=== PATIENT | male | born 1960 | race Caucasian/White ===

== ENCOUNTER 2019-12-24 11:56 | Outpatient (NON) | payer MEDICARE, SELFPAY ==
[2019-12-24 23:56] LABS: SARS-CoV-2 RNA PCR Negative
== END 2019-12-24 11:57 ==
PROVIDERS: Visit Provider Internal Medicine
DX: R05 Cough (principal); Z20.828 Contact with and (suspected) exposure to other viral communicable diseases
CPT/HCPCS: 87635; C9803; U0003

== ENCOUNTER 2020-01-23 11:19 | Outpatient (CLI) | payer MEDICARE, SELFPAY ==
--- NOTE | ~2020-01-23 | XR_ITS ---
XR chest 2V DATE: 01/23/2020 11:36 INDICATION: Cough, shortness of breath, fatigue. No fever. TECHNIQUE: PA and lateral views COMPARISON: 03/23/2016 portable AP chest FINDINGS: Normal heart size. No hilar or mediastinal enlargement. No pulmonary infiltrate or consol idation, pulmonary vascular congestion or pleural effusion or pneumothorax. Right glenohumeral joint replacement. Screws at left shoulder joint. Degenerative spurring of the t horacic spine. IMPRESSION: No active cardiopulmonary disease Reviewed, dictated and finalized at location B. 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
== END 2020-01-23 11:20 | disposition home or self-care (01) ==
PROVIDERS: PCP Internal Medicine; Visit Provider Internal Medicine
DX: R05 Cough (principal); Z96.611 Presence of right artificial shoulder joint; R06.02 Shortness of breath; R53.83 Other fatigue
CPT/HCPCS: 71046

== ENCOUNTER 2020-05-06 09:00 | Outpatient (CLI) | payer MEDICARE, SELFPAY ==
[2020-05-06 09:54] LABS: Basophils Absolute Auto 0.1 K/mm3 (0.0-0.1); Basophils Percent Auto 0.9 % (0.2-1.2); Eosinophils Absolute Auto 0.1 K/mm3 (0-0.3); Eosinophils Percent Auto 1.7 % (0-4.4); Hematocrit 41.8 % (42.0-52.0); Hemoglobin 14.3 g/dL (14.0-18.0); Immature Granulocyte Absolute 0.02 K/mm3 (0.00-0.031); Immature Granulocyte Percent A 0.2 % (0-0.5); Lymphocytes Percent Auto 20.9 % (18.3-44.2); Mean Corpuscular HGB Conc 34.2 g/dl (32-36); Mean Corpuscular Hemoglobin 31.9 pg (26-34); Mean Corpuscular Volume 93.3 fl (80-100); Mean Platelet Volume 9.8 fl (7.4-10.4); Monocytes Absolute Auto 0.5 K/mm3 (0.1-0.6); Monocytes Percent Auto 6.6 % (2.6-8.5); Neutrophils Absolute Auto 5.7 K/mm3 (1.3-6.7); Neutrophils Percent Auto 69.7 % (45.5-73.1); Platelet Count Result 197 k/mm3 (150-375); Red Blood Count 4.48 M/mm3 (4.6-6.20); Red Cell Distribution Width 13.1 % (11.5-14.5); White Blood Count 8.2 K/mm3 (4.5-10.0)
[2020-05-06 10:12] LABS: Alanine Aminotransferase 98 U/L (4-50); Albumin Level 4.4 g/dL (3.5-5.1); Alkaline Phosphatase 89 U/L (38-126); Anion Gap 8 mmol/L (8-16); Aspartate Amino Transferase 58 U/L (17-59); Bilirubin,Total 0.5 mg/dL (0.2-1.3); Blood Urea Nitrogen 15 mg/dL (9-20); Calcium 9.1 mg/dL (8.4-10.2); Carbon Dioxide 26 mmol/L (22-30); Chloride 105 mmol/L (98-107); Cholesterol 270 mg/dL (0-200); Estimated Glomerular Filt Rate > 60; Glucose 116 mg/dL (75-110); HDL Direct 54 mg/dL; Potassium 3.6 mmol/L (3.4-5.0); Sodium 139 mmol/L (137-145); Triglycerides 149 mg/dL (<150)
[2020-05-06 10:25] LABS: LDL Cholesterol Direct 186 mg/dL
[2020-05-06 10:45] LABS: Prostate Specific Antigen 0.7 ng/mL (< OR = 4.0); Thyroid Stimulating Hormone 0.669 uIU/mL (0.465-4.680)
[2020-05-06 11:19] LABS: Folic Acid 6.5 ng/mL (2.76->20)
== END 2020-05-06 09:01 | disposition home or self-care (01) ==
LOC: ANHLAB 09:04
PROVIDERS: PCP Internal Medicine; Visit Provider Internal Medicine
DX: Z12.5 Encounter for screening for malignant neoplasm of prostate (principal); R10.9 Unspecified abdominal pain; R53.83 Other fatigue; R73.9 Hyperglycemia, unspecified; E78.00 Pure hypercholesterolemia, unspecified
CPT/HCPCS: 36415; 80053; 80061; 82607; 82746; 84153; 84443; 85025; G0103

== ENCOUNTER 2020-06-28 08:27 | Outpatient (CLI) | payer MEDICARE, SELFPAY | END 2020-06-28 08:28 | disposition home or self-care (01) | LOC: ANHCOVIDVC 08:27 | PROVIDERS: PCP Internal Medicine | DX: Z23 Encounter for immunization (principal) | CPT/HCPCS: 0001A; 91300 ==

== ENCOUNTER 2020-07-19 08:27 | Outpatient (CLI) | payer MEDICARE, SELFPAY | END 2020-07-19 08:28 | disposition home or self-care (01) | LOC: ANHCOVIDVC 08:27 | PROVIDERS: PCP Internal Medicine | DX: Z23 Encounter for immunization (principal) | CPT/HCPCS: 0002A; 91300 ==

== ENCOUNTER 2020-08-30 10:42 | Emergency (ER) | payer MEDICARE, SELFPAY ==
--- NOTE | 2020-08-30 10:47 | ED.WOUNDLAC ---
HPI - Wound/Laceration General Chief Complaint: Wound/Laceration Stated Complaint: Lt leg cut Source: patient Mode of arrival: ambulatory Limitations: no limitations History of Present Illness HPI narrative: Patient is a 60-year-old male who presents with a laceration to left lower extremity. Patient reports he was cleaning a pool and hit something metal. Patient has approximate 2 cm laceration to left lower extremity. Bleeding controlled with dressing. Patient is not up-to-date on tetanus. Patient denies use of blood thinners. Related Data Home Medications Medication Instructions Recorded Confirmed aspirin 81 mg tablet,delayed 81 mg PO DAILY 04/04/19 07/13/20 release Allergies Allergy/AdvReac Type Severity Reaction Status Date / Time No Known Allergies Allergy Verified 07/13/20 09:45 Review of Systems Review of Systems: Narrative: CONSTITUTIONAL: Denies fever, chills, or sweats. EYES: Denies visual changes, redness, or discharge. ENT: Denies rhinorrhea, congestion, sore throat, or otalgia. CARDIOVASCULAR: Denies chest pain, palpitations, or edema. RESPIRATORY: Denies cough or dyspnea. GASTROINTESTINAL: Denies abdominal pain, nausea, vomiting, or diarrhea. GENITOURINARY: Denies dysuria or hematuria. SKIN: Laceration left lower extremity MUSCULOSKELETAL: Denies back pain, joint pain, or myalgia. NEUROLOGIC: Denies headache, numbness, dizziness, or weakness. PSYCHIATRIC: Denies anxiety or depression. [facility] Family History Family History Sibling Patient's sister is in good health Patient's brother is in good health Father Patient's father is Acute myocardial infarction Social History Social History Smoking packs per day: 1 Smoking cigarettes per day: 20.0 Years smoked: 20 Smoking pack-years: 20.00 Smoking status: Current every day smoker Second hand tobacco smoke exposure: No Smoking end date: 03/05/17 Alcohol intake: never Substance use: never Comments At the time of signature, I have reviewed and agree with nursing past medical, surgical, social, and family history unless otherwise noted. Please see nursing chart for further information. There is no relevant family history pertinent to the presenting complaint. Exam Narrative: Exam Narrative: GENERAL: Well-appearing, well-nourished, and in no acute distress. HEAD: Normocephalic, atraumatic. EYES: EOMI. No redness or drainage. Conjunctiva are normal. ENT: Mucous membranes pink and moist. CHEST: No respiratory distress. HEART: Regular rate and rhythm. EXTREMITIES: Normal range of motion. No edema. SKIN: Approximate 2 cm linear laceration to anterior left lower extremity NEURO: No focal deficits. Alert and oriented x3. Gait steady. PSYCH: Normal affect. No signs of depression or anxiety. Course Vital Signs Vital signs: Vital Signs Temperature 36.4 C 08/30/20 10:50 Pulse Rate 94 08/30/20 10:50 Respiratory Rate 18 08/30/20 10:50 Blood Pressure 114/65 08/30/20 10:50 Pulse Oximetry 99 08/30/20 10:50 Temperature 36.4 C 08/30/20 10:50 Pulse Rate 94 08/30/20 10:50 Respiratory Rate 18 08/30/20 10:50 Blood Pressure 114/65 08/30/20 10:50 Pulse Oximetry 99 08/30/20 10:50 Reviewed Procedures Laceration Laceration 1: Site: lower extremity Side (If applicable): left Size (cm): 2 Description: linear Depth: simple, single layer Local Anesthetic: lidocaine 1% Amount of anesthesia used (mL): 2 Pre-repair: irrigated ====== Skin Level ====== Skin layer closed with: nylon Size (cm): 5-0 Number of sutures: 8 Technique: simple, interrupted ====== Subcutaneous Layer ====== ====== Muscle Layer ====== ====== Tendon Layer ====== MDM - Wound/Laceration MDM Narrativ
[2020-08-30 10:50] VITALS: BP 114/65; PULSE 94; RESP 18; TEMP 36.4; O2SAT 99
[2020-08-30] MEDS: TETANUS,DIPHTHERIA,AC PERTUSSIS ADULT (0.5 ML) BOOSTRIX IM (11:04)
== END 2020-08-30 11:58 | disposition home or self-care (01) ==
PROVIDERS: Emergency Provider Nurse Practitioner; PCP Internal Medicine
DX: S81.812A Laceration without foreign body, left lower leg, initial encounter (principal); W45.8XXA Other foreign body or object entering through skin, initial encounter; Z23 Encounter for immunization; F17.210 Nicotine dependence, cigarettes, uncomplicated
CPT/HCPCS: 12001; 90471; 90715; 99212; G0463

== ENCOUNTER 2021-01-20 10:18 | Emergency (ER) | payer MEDICARE, SELFPAY ==
--- NOTE | ~2021-01-20 | CT_ITS ---
EXAMINATION: CT cervical spine wo con DATE: 01/20/2021 10:56 INDICATION: Neck injury. Neck pain. TECHNIQUE: Computed tomography (CT) of the cervical spine was performed without intravenous contrast. Automated exposure control and iterative reconstruction technique were employed. The dose-length pro duct was 452.03 mGy-cm. COMPARISON: CT cervical spine 03/23/16 FINDINGS: There is mild kyphosis of cervical spine. There is 4 degrees levocurvature of cervical spin e. Vertebral body heights are normal. There is mildly decreased disc height at C3-C4 and C5-C6 and se verely decreased disc height at C6-C7. There is a nondisplaced fracture of the C6 right lateral mass involving the superior and inferior facets. The following disc levels are specifically discussed: C2-C3: There is no uncovertebral joint osteoarthritis. There is severe left facet joint osteoarthriti s. There is mild left neural foraminal stenosis. There is no central canal stenosis. C3-C4: There is mild bilateral uncovertebral joint osteoarthritis. There is moderate right and mild l eft facet joint osteoarthritis. There is no neural foraminal stenosis. There is no central canal sten osis. C4-C5: There is moderate bilateral uncovertebral joint osteoarthritis. There is mild left facet joint osteoarthritis. There is mild bilateral neural foraminal stenosis. There is mild central canal steno sis. C5-C6: There is severe right and moderate left uncovertebral joint osteoarthritis. There is no facet joint osteoarthritis. There is mild right neural foraminal stenosis. There is mild central canal sten osis. C6-C7: There is severe bilateral uncovertebral joint osteoarthritis. There is severe bilateral facet joint osteoarthritis. There is moderate right and mild left neural foraminal stenosis. There is mild central canal stenosis. C7-T1: There is no uncovertebral joint osteoarthritis. There is severe bilateral facet joint osteoart hritis. There is mild right neural foraminal stenosis. There is no central canal stenosis. IMPRESSION: 1. Acute fracture of C6 right lateral mass. 2. Severe cervical spondylosis. Reviewed, dictated and finalized at location A. TS AND PROMOTIONS ASSISTANT
--- NOTE | ~2021-01-20 | CT_ITS ---
EXAMINATION: CT thoracic spine wo con DATE: 01/20/2021 10:56 INDICATION: Back injury. TECHNIQUE: Computed tomography (CT) of the thoracic spine was performed without intravenous contrast. Automated exposure control and iterative reconstruction technique were employed. The dose-length pro duct was 1325.20 mGy-cm. COMPARISON: None FINDINGS: There is mild scarring at the lung apices. There is 4 degrees levocurvature of upper thorac ic spine. There is a chronic compression fracture of L1 with 2/5 loss of height. There is mild chroni c anterior wedging of T7 vertebral body. There is mildly decreased disc height at multiple levels. Th ere is severely decreased disc height at T7-T8 and mild moderately decreased disc height at T8-T9 and T9-T10. There is multilevel facet joint osteoarthritis, severe on the left at T1-T2. There is multil evel mild neural foraminal stenosis bilaterally. There is mild central canal stenosis at T3-T4, T7-T8 , T8-T9, and T9-T10. IMPRESSION: 1. No acute fracture. 2. Severe thoracic spondylosis. Reviewed, dictated and finalized at location A. 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
--- NOTE | ~2021-01-20 | CT_ITS ---
EXAMINATION: CT brain wo con DATE: 01/20/2021 10:56 INDICATION: Head injury. TECHNIQUE: Computed tomography (CT) of the head was performed without intravenous contrast. The mA wa s adjusted according to patient size. Iterative reconstruction technique was employed. The dose-lengt h product was 681.00 mGy-cm. COMPARISON: Head CT 03/23/2016, brain MRI 03/24/2016 FINDINGS: There is no intracranial hemorrhage, acute infarction, or abnormal intracranial mass lesion . The ventricles are normal in size. The orbits are normal. There is mild mucosal thickening in the e thmoid sinuses. There is a trace right mastoid effusion. IMPRESSION: 1. Normal brain. Reviewed, dictated and finalized at location A. RBARIC TECHNOLOGIST IMPRESSION: 1. Normal brain.
[2021-01-20 10:22] VITALS: BP 180/106; PULSE 94; RESP 18; TEMP 36.7; O2SAT 98
--- NOTE | 2021-01-20 11:44 | ED.HEATRA ---
HPI - Head Injury General Chief complaint: Head Injury Stated complaint: HEAD INJURY I THINK I BROKE MY NECK Time Seen by Provider: 01/20/21 10:20 History of Present Illness HPI Narrative: Patient is a 60-year-old male who presents ER with concerns for neck fracture. Patient reports yesterday evening he was working on his Crestor when the string broke and the garage door slammed into his head. Patient had loss of consciousness. He woke up on the ground. He had numbness in his right arm that eventually faded away. He had persistent neck pain through the night and through today so he opted to come in to be evaluated. Reports he has significant pain if he tries to turn his head to the left or right and notices that his range of motion is significantly reduced. At this time he has no neurologic complaint. He is urinating defecating without issue. He is not on any blood thinners. Related Data Home Medications Medication Instructions Recorded Confirmed aspirin 81 mg tablet,delayed 81 mg PO DAILY 04/04/19 07/13/20 release Allergies Allergy/AdvReac Type Severity Reaction Status Date / Time No Known Allergies Allergy Verified 01/20/21 10:28 Review of Systems Review of Systems: All systems reviewed & are unremarkable except as noted in HPI and below Constitutional: Constitutional: Denies chills, Denies fever(s) and Denies weakness Eyes: Eyes: Denies change in vision and Denies photophobia Cardiovascular: Cardiovascular: Denies chest pain and Denies rapid heart rate Gastrointestinal: Gastrointestinal: Denies nausea and Denies vomiting Musculoskeletal: Musculoskeletal: Denies back pain, Denies arthralgias, Denies joint swelling and Reports muscle cramps Integumentary/Breasts: Comments: Scalp abrasions Neurologic: Reports syncope, Denies headache(s), Denies focal weakness and Reports numbness (Resolved) [facility] Past Medical History Medical History (Updated 01/20/21 @ 13:35 by Bubba Aparicio MD) Depression Pure hypercholesterolemia Seizures Surgical History Surgical History (Updated 01/20/21 @ 13:33 by Bubba Aparicio MD) H/O shoulder replacement History of knee surgery Family History Family History Sibling Patient's sister is in good health Patient's brother is in good health Father Patient's father is Acute myocardial infarction Social History Social History Smoking packs per day: 1 Smoking cigarettes per day: 20.0 Years smoked: 20 Smoking pack-years: 20.00 Smoking status: Current every day smoker Second hand tobacco smoke exposure: No Smoking end date: 03/05/17 Alcohol intake: never Substance use: never Exam Narrative: GENERAL: Well-appearing, well-nourished, and in no acute distress. HEAD: Normocephalic, multiple abrasions to left scalp from forehead to the parietal occipital region. EYES: PERRL and EOMI. NECK: Supple. Midline tenderness from C6-T2 as well as paraspinal muscular tenderness. No step-offs. No abrasions or bruising noted. CHEST: Clear to auscultation. No respiratory distress. HEART: Regular rate and rhythm. Normal peripheral pulses.. EXTREMITIES: Normal range of motion. No edema. SKIN: Warm, dry, no rash. NEURO: No focal deficits. Alert and oriented x3. Course Reevaluation(s) Reevaluation #1: Discussed results with pt. Accepted to [facility] by Dr. Blue for DR. Conley. Waiting inpt bed. Patient is in cervical spine immobilization. Date: 01/20/21 Time: 12:25 Vital Signs Vital signs: Vital Signs Temperature 98.1 F 01/20/21 10:22 Pulse Rate 94 01/20/21 10:22 Respiratory Rate 18 01/20/21 10:22 Blood Pressure 180/106 H 01/20/21 10:22 Pulse Oximetry 98 01/20/21 10:22 Temperature 98.1 F 01/20/21 10:22 Pulse Rate 94 01/20/21 10:22 Respiratory Rate 18 01/20/21 10:22 Blood Pressure 180/106
[2021-01-20] MEDS: MORPHINE SULFATE (*CRX) 4 MG/ML INJ IV PUSH ×3 (12:03→16:29)
--- NOTE | 2021-01-20 14:00 | PC.NURSE ---
Awaiting room assignment at [facility]. Pt up in room without c/o.
[2021-01-20] MEDS: NICOTINE (*PBKC) 14 MG PATCH 1 PATCH TRANSDERM (16:28)
[2021-01-20 16:32] VITALS: BP 174/102; PULSE 99; RESP 20; TEMP 36.8; O2SAT 100
== END 2021-01-20 17:14 | disposition short-term general hospital (02) ==
PROVIDERS: Emergency Provider Emergency Medicine; PCP Internal Medicine
DX: S12.591A Other nondisplaced fracture of sixth cervical vertebra, initial encounter for closed fracture (principal); E78.00 Pure hypercholesterolemia, unspecified; Z96.619 Presence of unspecified artificial shoulder joint; M47.812 Spondylosis without myelopathy or radiculopathy, cervical region; M47.814 Spondylosis without myelopathy or radiculopathy, thoracic region; Z79.82 Long term (current) use of aspirin; F17.210 Nicotine dependence, cigarettes, uncomplicated; W20.8XXA Other cause of strike by thrown, projected or falling object, initial encounter
CPT/HCPCS: 70450; 72125; 72128; 96374; 96376; 99285; A9270; J2270; L0140

== ENCOUNTER 2021-07-14 00:44 | Day surgery (SDC) | payer MEDICARE, SELFPAY ==
[2021-06-27 12:58] VITALS: BMI 32.1
--- NOTE | 2021-07-13 10:22 | PM.HPGS ---
History of Present Illness History of Present Illness Consent: Risks, benefits, and alternatives have been discussed and questions answered. Patient agrees to proceed with procedure. Chief complaint: neoplasm screening Narrative: Giles Diaz is a 60 year old male with history of colon polyps he had 6 polyps removed 10 years ago. 4 of them were advanced adenomas. Review of Systems Review of Systems: All systems reviewed & are unremarkable except as noted in HPI and below PMFSH Past Medical History Medical History Depression Pure hypercholesterolemia Seizures Surgical History Surgical History H/O shoulder replacement History of knee surgery Family History Family History Sibling Patient's sister is in good health Patient's brother is in good health Father Patient's father is Acute myocardial infarction Social History Social History Smoking packs per day: 1 Smoking cigarettes per day: 20.0 Years smoked: 20 Smoking pack-years: 20.00 Smoking status: Never smoker Second hand tobacco smoke exposure: No Smoking end date: 03/05/17 Alcohol intake: never Substance use: never Substance use type: does not use Living arrangements: with family Additional living arrangements comments: spouse Ana Laura Spiritual care concerns: No Meds Home Medications and Allergies Home Medications Medication Instructions Recorded Confirmed Type aspirin 81 mg tablet,delayed 81 mg PO DAILY 04/04/19 06/27/21 History release lisinopril 20 mg tablet 20 mg PO DAILY #90 tablet 06/06/21 06/27/21 Rx omeprazole 40 mg capsule,delayed 40 mg PO DAILY #90 cap 06/08/21 06/27/21 Rx release folic acid 1 mg tablet 1 mg PO DAILY #90 tablet 06/21/21 06/27/21 Rx Allergies Allergy/AdvReac Type Severity Reaction Status Date / Time No Known Allergies Allergy Verified 07/14/21 08:05 Exam Resp: Auscultation: clear to auscultation bilaterally Cardio: Rate: regular rate Rhythm: regular rhythm GI: GI Palp: Yes Soft to palpation and No Tenderness to palpation present (GI) Assessment and Plan Assessment and plan (1) Colon cancer screening: Code(s): Z12.11 - Encounter for screening for malignant neoplasm of colon Status: Acute Assessment and Plan: Colonoscopy with possible biopsy or polypectomy or cautery or injection of substances.
[2021-07-14 08:06] VITALS: BP 164/81; PULSE 101; RESP 18; TEMP 36.6; O2SAT 99
[2021-07-14] MEDS: LACTATED RINGERS 1,000 ML 150 ML IV CONT (08:14)
--- NOTE | 2021-07-14 08:38 | P.PNAN_ITS ---
Anes - Initial Pre Proc Eval Procedure: Operation Date: 07/14/21 09:15 Proposed Procedures p Screening Colonoscopy - Laureano Mae MD Date/Time: 07/14/21 08:38 Surgeon: Laureano Mae MD Pre Op Diagnosis: neoplasm screening Patient Data Age: 60 Gender: M Height: 1.77 m Weight: 97.9 kg Last Vital Signs Temp 97.9 F 07/14/21 08:06 Pulse 101 H 07/14/21 08:06 Resp 18 07/14/21 08:06 BP 164/81 H 07/14/21 08:06 Pulse Ox 99 07/14/21 08:06 Allergies Allergy/AdvReac Type Severity Reaction Status Date / Time No Known Allergies Allergy Verified 07/14/21 08:05 Home Medications Medication Instructions Recorded Confirmed Type aspirin 81 mg tablet,delayed 81 mg PO DAILY 04/04/19 06/27/21 History release lisinopril 20 mg tablet 20 mg PO DAILY #90 tablet 06/06/21 06/27/21 Rx omeprazole 40 mg capsule,delayed 40 mg PO DAILY #90 cap 06/08/21 06/27/21 Rx release folic acid 1 mg tablet 1 mg PO DAILY #90 tablet 06/21/21 06/27/21 Rx Patient hx anesthesia problems: none Family hx anesthesia problems: none Results Review: All pre-operative results and documents have been reviewed as part of the pre-operative evaluation. [facility] Past Medical History Medical History Depression Pure hypercholesterolemia Seizures Surgical History Surgical History H/O shoulder replacement History of knee surgery Family History Family History Sibling Patient's sister is in good health Patient's brother is in good health Father Patient's father is Acute myocardial infarction Social History Social History Smoking packs per day: 1 Smoking cigarettes per day: 20.0 Years smoked: 20 Smoking pack-years: 20.00 Smoking status: Never smoker Second hand tobacco smoke exposure: No Smoking end date: 03/05/17 Alcohol intake: never Substance use: never Substance use type: does not use Living arrangements: with family Additional living arrangements comments: spouse Ana Laura Spiritual care concerns: No Anes - Eval Final PreProcedure Day of Procedure 07/14/21 08:38 Patient weight: obese Heart: regular rate and rhythm Lungs: clear to auscultation Airway: Mallampati scale class II Neurological: alert and oriented Last oral intake: >/= 8 hours ASA classification: III Emergent: no Anesthetic plan: proceed Anesthesia type and monitoring: general GIVS and standard monitoring Results Review: All pre-operative results and documents have been reviewed as part of the pre-operative evaluation. Informed Consent: The patient's anesthetic plan and its attendant risks and benefits were discussed with the patient/family/POA. Questions were solicited and answers provided to the satisfaction of the patient/family/POA.
[2021-07-14 09:29] VITALS: BP 128/88; PULSE 90; RESP 24; O2SAT 98
[2021-07-14 09:39] VITALS: BP 169/103; PULSE 84; RESP 17; O2SAT 98
[2021-07-14 09:49] VITALS: BP 164/96; PULSE 86; RESP 20; O2SAT 98
== END 2021-07-14 09:55 | disposition home or self-care (01) ==
PROVIDERS: PCP Internal Medicine; Visit Provider Internal Medicine Gastroenterology
PROC: 0DJD8ZZ Inspection of Lower Intestinal Tract, Via Natural or Artificial Opening Endoscopic (ICD-10-PCS; CPT 45378; principal; 2021-07-14 09:15)
DX: Z12.11 Encounter for screening for malignant neoplasm of colon (principal); K62.1 Rectal polyp; K57.30 Diverticulosis of large intestine without perforation or abscess without bleeding; Z79.82 Long term (current) use of aspirin; F32.9 Major depressive disorder, single episode, unspecified; R56.9 Unspecified convulsions; E78.00 Pure hypercholesterolemia, unspecified; Z87.891 Personal history of nicotine dependence; E66.9 Obesity, unspecified; Z68.31 Body mass index [BMI] 31.0-31.9, adult
CPT/HCPCS: 45385; 88305; J2704; J7120

== ENCOUNTER 2022-10-16 14:20 | Outpatient (CLI) | payer MEDICARE, SELFPAY ==
--- NOTE | ~2022-10-16 | CT_ITS ---
EXAMINATION: CT lung screening DATE: 10/16/2022 14:51 INDICATION: Lung Screening TECHNIQUE: Computed tomography (CT) of the chest was performed without intravenous contrast. Addition al 3D reconstructions utilizing coronal maximum intensity projection (MIP) were performed. Automated exposure control and iterative reconstruction technique were employed. The dose-length product was 29 3.53 mGy-cm. COMPARISON: [address] dated 10/16/2022 FINDINGS: Large pneumatocele at the junction of the left major and minor fissures, likely the right upper lobe. 2 mm left lower lobe nodule near the costophrenic angle. No other suspicious pulmonary nodules, pneu monia, pulmonary edema or pleural effusion. Heart size is normal. Atherosclerotic coronary artery cheryl cific lesion. Aortic valve calcification. No pericardial effusion. Thoracic aorta is normal in calibe r. No pathologically enlarged thoracic lymphadenopathy. No significant change in a 6 mm high attenuat ion likely hemorrhagic/proteinaceous cyst at the upper pole of the left kidney. Right total shoulder arthroplasty. Severe lower cervical and moderate to severe thoracic spondylosis. Chronic L2 compressi on fracture with 20% anterior vertebral body height loss. IMPRESSION: 1. Lung-RADS category 2: Benign appearance or behavior. Continue annual screening with noncontrast lo w-dose chest CT in 12 months. Reviewed, dictated and finalized at location A. IMPRESSION: 1. Lung-RADS category 2: Benign appearance or behavior. Continue annual screeni ng with noncontrast low-dose chest CT in 12 months.
== END 2022-10-16 14:21 | disposition home or self-care (01) ==
PROVIDERS: PCP Internal Medicine; Visit Provider Internal Medicine
DX: Z12.2 Encounter for screening for malignant neoplasm of respiratory organs (principal); Z87.891 Personal history of nicotine dependence
CPT/HCPCS: 71271

== ENCOUNTER 2022-12-21 08:43 | Emergency (ER) | payer MEDICARE, SELFPAY ==
--- NOTE | ~2022-12-21 | XR_ITS ---
Left Shoulder Technique: AP and scapular Y views were obtained. Clinical History: Pain Findings: No fracture or dislocation is seen. Osseous alignment is anatomic. There is mild degenerati ve change of the glenohumeral joint, with 2 orthopedic screws at the humeral head. Soft tissues are u nremarkable. Impression: No acute fracture or dislocation. Mild degenerative change of the glenohumeral joint. 2 orthopedic screws the humeral head. Correlate with surgical history. Reviewed, dictated and finalized at location M. Impression: No acute fracture or dislocation. Mild degenerative change of the glenohumeral joint. 2 orthopedic screws the humeral head. Correlate with surgical history.
--- NOTE | ~2022-12-21 | XR_ITS ---
Left Humerus Technique: AP and lateral views were obtained. Clinical History: Pain Findings: Questionable linear lucency through the humeral head, which indicate nondisplaced fracture. Orthopedic screws are present at the humeral head. Osseous alignment is anatomic. Visualized joint s paces are grossly preserved. Soft tissues are unremarkable. Impression: Questionable nondisplaced fracture of the humeral head. Recommend dedicated shoulder radiographs for better visualization/evaluation of the humeral head. 2 orthopedic screws are present at the humeral head. Reviewed, dictated and finalized at location M. Impression: Questionable nondisplaced fracture of the humeral head. Recommend dedicated sandy ulder radiographs for better visualization/evaluation of the humeral head. 2 orthopedic screws are present at the humeral head.
[2022-12-21 08:48] VITALS: BP 146/111; PULSE 97; RESP 18; TEMP 36.7; O2SAT 100
--- NOTE | 2022-12-21 10:58 | ED.GENADULT ---
HPI - General Adult General Chief complaint: Extremity Injury, Upper Stated complaint: possible torn bicep Time Seen by Provider: 12/21/22 09:28 History of Present Illness HPI narrative: 62-year-old male present to the emergency department for evaluation of left arm pain. Patient states Sunday he was lifting and felt a pop at his antecubital fossa. Patient noticed a bulging at the left bicep. Patient denies having any current pain at rest but states he does have some tenderness with trying to use the left arm. Related Data Home Medications Medication Instructions Recorded Confirmed aspirin 81 mg tablet,delayed 81 mg PO DAILY 04/04/19 10/04/22 release (Adult Low Dose Aspirin) Allergies Allergy/AdvReac Type Severity Reaction Status Date / Time No Known Allergies Allergy Verified 10/04/22 08:50 Review of Systems Review of Systems: All systems reviewed & are unremarkable except as noted in HPI and below PMFSH Past Medical History Medical History (Updated 12/21/22 @ 11:05 by Marco A Rao MD) Depression Pure hypercholesterolemia Seizures Surgical History Surgical History H/O shoulder replacement History of knee surgery Family History Family History Sibling Patient's sister is in good health Patient's brother is in good health Father Patient's father is Acute myocardial infarction Social History Social History Smoking packs per day: 1 Smoking cigarettes per day: 20.0 Years smoked: 20 Smoking pack-years: 20.00 Smoking status: Never smoker Second hand tobacco smoke exposure: No Smoking end date: 03/05/17 Alcohol intake: never Substance use: never Substance use type: does not use Living arrangements: with family Additional living arrangements comments: spouse Ana Laura Spiritual care concerns: No Exam Narrative: APPEARANCE: Well appearing, no pain, no distress, well-nourished. HEAD: normocephalic, atraumatic. EYES: PERRLA/EOMI, conjunctivae clear. NOSE: Normal no drainage NECK: Supple. No adenopathy, no masses. RESPIRATORY: Airway patent, respirations nonlabored. Clear to auscultation bilaterally, no rales, rhonchi, wheezing. CARDIOVASCULAR: Regular rate and rhythm without murmurs rubs or gallops. ABDOMINAL: Soft, nontender, nondistended, normal bowel sounds MUSCULOSKELETAL: Bulking of the left biceps NEURO: Alert. Cranial nerves II through XII intact. Grossly intact SKIN: Warm, dry. Normal Color Course Course Emergency Course: 62-year-old male presented to ED for evaluation of left distal biceps tendon rupture. Patient was provided follow-up with orthopedics. Patient declined to take the sling. Vital Signs Vital signs: Vital Signs Temperature 98.0 F 12/21/22 08:48 Pulse Rate 97 12/21/22 08:48 Respiratory Rate 18 12/21/22 08:48 Blood Pressure 146/111 H 12/21/22 08:48 Pulse Oximetry 100 12/21/22 08:48 Temperature 98.0 F 12/21/22 08:48 Pulse Rate 97 12/21/22 08:48 Respiratory Rate 18 12/21/22 08:48 Blood Pressure 146/111 H 12/21/22 08:48 Pulse Oximetry 100 12/21/22 08:48 Medical Decision Making Vital Signs Vital Signs: Vital Signs Temperature 98.0 F 12/21/22 08:48 Pulse Rate 97 12/21/22 08:48 Respiratory Rate 18 12/21/22 08:48 Blood Pressure 146/111 H 12/21/22 08:48 Pulse Oximetry 100 12/21/22 08:48 Temperature 98.0 F 12/21/22 08:48 Pulse Rate 97 12/21/22 08:48 Respiratory Rate 18 12/21/22 08:48 Blood Pressure 146/111 H 12/21/22 08:48 Pulse Oximetry 100 12/21/22 08:48 Imaging Data Radiologist's impression: Impressions Humerus X-Ray 12/21/22 09:10 Impression: Questionable nondisplaced fracture of the humeral head. Recommend dedicated shoulder radiographs for better vis
== END 2022-12-21 11:22 | disposition home or self-care (01) ==
PROVIDERS: Emergency Provider Emergency Medicine; PCP Internal Medicine
DX: S46.212A Strain of muscle, fascia and tendon of other parts of biceps, left arm, initial encounter (principal); E78.00 Pure hypercholesterolemia, unspecified; Z96.619 Presence of unspecified artificial shoulder joint; Z87.891 Personal history of nicotine dependence; Z79.82 Long term (current) use of aspirin; X50.0XXA Overexertion from strenuous movement or load, initial encounter
CPT/HCPCS: 73030; 73060; 99283; A4565

== ENCOUNTER 2022-12-26 07:28 | Outpatient (CLI) | payer MEDICARE, SELFPAY ==
--- NOTE | 2022-12-26 07:44 | ECHO_ITS ---
Patient Info Name: Giles Diaz Age: 62 years : 1960 Gender: Male Ht: 69 in Wt: 215 lbs BSA: 2.21 m2 HR: 89 bpm BP: 165 / 80 mmHg Technical Quality: Fair Exam Date: 12/26/2022 8:04 AM Exam Location: [facility] Patient Status: Outpatient Admit Date: 12/26/2022 Staff Ordering Physician: Giuseppe Becerra DO Swimming Professor: Lucila Madrigal RDCS Attending Provider: Giuseppe Becerra DO Referring Physician: Hernan VELASQUEZ; Exam Type: CA echo doppler color flow Study Info Indications R00.2 - Palpitations Complete two-dimensional, color flow and Doppler transthoracic echocardiogram is performed. Summary 1. Complete two-dimensional, color flow and Doppler transthoracic echocardiogram is performed. 2. Left ventricular chamber dimension is normal. 3. Left ventricular systolic function is normal, estimated at 65-70%. 4. There is mild concentric increased left ventricular wall thickness. 5. The left ventricular diastolic function is grade I diastolic dysfunction. 6. There is moderate aortic valve sclerosis. 7. There is trace tricuspid valve regurgitation. 8. No pulmonary hypertension, estimated pulmonary arterial systolic pressure is 20 mmHg. Left Ventricle Tissue doppler E/e' is not performed. Left ventricular chamber dimension is normal. Left ventricular systolic function is normal, estimated at 65-70%. There is mild concentric increased left ventricular wall thickness. The left ventricular diastolic function is grade I diastolic dysfunction. Right Ventricle Right ventricular chamber dimension is normal. Right ventricular systolic function is normal. Left Atria Left atrial chamber dimension is normal. Right Atria Right atrial chamber dimension is normal. Aortic Valve The aortic valve is trileaflet. There is moderate aortic valve sclerosis. There is no aortic valve stenosis. There is no aortic valve regurgitation. Pulmonic Valve There is no pulmonic regurgitation. Mitral Valve There is no mitral valve stenosis. There is no mitral valve regurgitation. Tricuspid Valve There is trace tricuspid valve regurgitation. No pulmonary hypertension, estimated pulmonary arterial systolic pressure is 20 mmHg. Pericardium/Pleural There is no pericardial effusion. Inferior Vena Cava Normal inferior vena cava with >50% collapse upon inspiration consistent with normal right atrial pressure, 5 mmHg. Aorta The aortic root size at the sinus of Valsalva is normal. Left Ventricular Outflow Tract Name Value Normal LVOT 2D LVOT Diameter 2.1 cm LVOT Doppler LVOT Peak Gradient 6 mmHg LVOT Mean Gradient 4 mmHg LVOT VTI 26 cm LVOT VTI/AV VTI Ratio 1.0 LVOT Stroke Volume 88 ml LVOT CO 7.5 l/min LVOT CI 3.4 l/min/m2 Pulmonic Valve Name Value Normal RVOT Doppler
--- NOTE | 2022-12-29 12:39 | WPDHOLTEREM ---
Holter/Event Monitor Holter/Event Monitor Date of procedure: 12/26/22 Holter/Event Procedure: 48 Hr Holter Monitor Indications: Palpitations Conclusion: 1. 48 hour holter monitor on 12/26/22. 2. Underlying rhythm is sinus rhythm. HR range 63-143 bpm; average HR 95 bpm. 3. There are 32 premature supraventricular complexes. No supraventricular tachycardia. 4. There are 976 premature ventricular complexes and 18 ventricular trigeminy. No ventricular tachycardia. 5. No sinoatrial or atrioventricular blocks. No significant pauses greater than 2 seconds. 6. Patient reports symptoms of palpitations which demonstrate sinus rhythm, HR range 88-98 bpm.
== END 2022-12-26 07:29 | disposition home or self-care (01) ==
LOC: ANHCARD 07:28
PROVIDERS: PCP Internal Medicine; Visit Provider Internal Medicine
DX: R00.2 Palpitations (principal); I35.8 Other nonrheumatic aortic valve disorders; I07.1 Rheumatic tricuspid insufficiency; R93.1 Abnormal findings on diagnostic imaging of heart and coronary circulation
CPT/HCPCS: 93225; 93226; 93306

== ENCOUNTER 2022-12-29 01:05 | Day surgery (SDC) | payer MEDICARE, SELFPAY ==
[2022-12-26 13:26] VITALS: BMI 31.3
--- NOTE | 2022-12-26 13:34 | PC.NURSE ---
Report to the Outpatient Waiting Room, entrance under the green pavilion located off [facility], at time 0700 on date 12/29/22. Planned Procedure Time: 0900. Time changes happen often and if your time is changed the preop area will call you the afternoon before. - You and your visitor will be asked to self-screen and do not enter if you have any COVID symptoms. - A mask is optional within the hospital at this time. Patients may have clear liquids (water, carbonated beverages, clear teas, apple juice) until 3 hours prior to surgery with a maximum of 20 ounces. - No food from midnight until time of surgery Take the following medications with a SIP of water the morning of surgery: NONE DO NOT STOP ANY OF YOUR OTHER PRESCRIPTION MEDICATIONS PRIOR TO SURGERY ?EXCEPT THE FOLLOWING Medications to discontinue per physician: N/A Date to take last dose: N/A Please no make-up, nail montserratian, hairspray, perfume, deodorant, or body powder the day of surgery. No jewelry (including any body piercings) or valuables the day of surgery, leave them at home. Please take a shower or bath the night before, or the morning of, surgery with an antibacterial soap. Wear comfortable, loose fitting clothing. - Jewelry must be removed prior to entering the operating room. Rings and piercings that are not removed may be cut off. - The hospital will not accept responsibility for valuables. - Please leave all valuables, including medications, at home the day of surgery. If you are going home after surgery, a licensed regional company truck driver must drive you home. - NO public transportation without another adult if you receive anesthesia. - We recommend that an adult stay with you for 24 hours following discharge. - We also recommend that you do not drive, make important decision, drink alcoholic beverages, or take any drugs that were not prescribed by your health care provider for at least 24 hours after your discharge time. Follow any additional instructions given to you from your surgeon. If you or anyone in your household have experienced Covid symptoms in the past week, please notify your surgeon or the nurse liaison at the phone number below for possible testing. Telephone instructions given to PT - DIANELYS ROJAS and asked if any additional questions and then verbalized understanding. Patient advised to call surgeon office or pre surgery nurse liaison [phone] if any additional questions.
[2022-12-29] VITALS (10 sets, daily range): BP systolic 131–183; BP diastolic 66–102; PULSE 78–94; RESP 12–18; TEMP 36.2–37.1; O2SAT 98–100
--- NOTE | ~2022-12-29 | XR_ITS ---
XR surgery orthopedic Procedure: Left biceps repair. TECHNIQUE: Fluoroscopy used during Left biceps repair. performed by [Andrew Raza MD] on . 15 seconds of fluoroscopy time with 3 fluoroscopic images captured. FINDINGS: Correlate with procedure note. IMPRESSION: Fluoroscopy used during Left biceps repair.. Reviewed, dictated and finalized at location B.
--- NOTE | 2022-12-29 06:03 | ECG_ITS ---
Measurements Intervals [place] Rate: 89 P: 42 DC: 145 QRS: 9 QRSD: 101 T: 0 QT: 353 QTc: 432 Interpretive Statements SINUS RHYTHM NONSPECIFIC T-WAVE ABNORMALITY BORDERLINE ECG NO PREVIOUS ECG AVAILABLE FOR COMPARISON Electronically Signed On 12-29-2022 7:40:10 CDT by Ron Navarrete M.D.
[2022-12-29] MEDS: ACETAMINOPHEN 500 MG TABLET 1000 MG PO (06:33)
[2022-12-29] MEDS: LACTATED RINGERS 1,000 ML 30 ML IV CONT ×2 (06:44→08:55)
[2022-12-29] MEDS: KETOROLAC 15 MG/ML VIAL (*BKC) IV PUSH (07:00)
--- NOTE | 2022-12-29 07:08 | P.PNAN_ITS ---
Anes - Initial Pre Proc Eval Procedure: Operation Date: 12/29/22 07:30 Proposed Procedures p Left Elbow Distal Bicep Repair - Andrew Raza MD Date/Time: 12/29/22 07:08 Surgeon: Andrew Raza MD Pre Op Diagnosis: Lt Distal Bicep Rupture Patient Data Age: 62 Gender: M Height: 1.77 m Weight: 97.52 kg Allergies Allergy/AdvReac Type Severity Reaction Status Date / Time No Known Allergies Allergy Verified 12/29/22 06:13 Home Medications Medication Instructions Recorded Confirmed Type aspirin 81 mg tablet,delayed 81 mg PO DAILY 04/04/19 12/26/22 History release (Adult Low Dose Aspirin) omeprazole 40 mg capsule,delayed 40 mg PO DAILY #90 caps 06/26/22 12/26/22 Rx release lisinopril 40 mg tablet 40 mg PO DAILY #90 tabs 10/07/22 12/26/22 Rx atorvastatin 20 mg tablet 20 mg PO DAILY #90 tabs 10/17/22 12/26/22 Rx Patient hx anesthesia problems: none Family hx anesthesia problems: none Results Review: All pre-operative results and documents have been reviewed as part of the pre- operative evaluation. [facility] Past Medical History Medical History (Updated 12/26/22 @ 11:43 by Andrew Raza MD) Depression Pure hypercholesterolemia Rupture of left distal biceps tendon Seizures Surgical History Surgical History H/O shoulder replacement History of knee surgery Family History Family History (Updated 12/26/22 @ 11:59 by Ele Wagner CMA) Sibling Patient's sister is in good health Patient's brother is in good health Father Patient's father is Acute myocardial infarction Unknown Hypertension Diabetes mellitus Cerebrovascular accident Breast cancer Social History Social History (Updated 12/26/22 @ 12:00 by Ele Wagner CMA) Smoking packs per day: 1 Smoking cigarettes per day: 20.0 Years smoked: 25 Smoking pack-years: 25.00 Smoking status: Current every day smoker Tobacco type: cigarettes Second hand tobacco smoke exposure: No Smoking end date: 03/05/17 Alcohol intake: never Substance use: never Substance use type: does not use Living arrangements: with family Additional living arrangements comments: spouse Ana Laura Spiritual care concerns: No Anes - Eval Final PreProcedure Day of Procedure 12/29/22 07:08 Patient weight: obese Heart: regular rate and rhythm Lungs: clear to auscultation Airway: Mallampati scale class II Neurological: alert and oriented Last oral intake: >/= 8 hours ASA classification: III Emergent: no Anesthetic plan: proceed Anesthesia type and monitoring: general LMA and standard monitoring Results Review: All pre-operative results and documents have been reviewed as part of the pre- operative evaluation. Informed Consent: The patient's anesthetic plan and its attendant risks and benefits were discussed with the patient/family/POA. Questions were solicited and answers provided to the satisfaction of the patient/family/POA.
--- NOTE | 2022-12-29 07:17 | WPDHPUPDATE1 ---
History and Physical Update Update Date/Time: 12/29/22 07:17 History and Physical has been reviewed, including an updated exam of the patient. There are NO changes in the patient's condition. Risks, benefits, and alternatives have been discussed and questions answered. Patient agrees to proceed with procedure.
[2022-12-29] MEDS: ceFAZolin 2 GM/D5W 50 ML 2 GM/50 ML BAG IVPB (07:30)
[2022-12-29] MEDS: BUPivacaine HCL 0.5% PF 30 ML VIAL 20 ML INFILTRATE (08:04)
[2022-12-29] MEDS: fentaNYL CITRATE INJ (*CRX) 100 MCG/2 ML VIAL 25 MCG IV PUSH ×4 (09:14→09:28)
--- NOTE | 2022-12-29 09:23 | W.PM.PROC2 ---
Procedure Note - Detailed Date of Procedure 12/29/22 Pre-op Diagnosis Lt Distal Bicep Rupture Post-op Diagnosis Same Procedure Performed Reinserted left distal biceps tendon to left radius Surgeon Andrew Raza MD Smt Technician 1st assist Anesthesia General Indications 62-year-old who ruptured his left distal biceps tendon. Presents for operative treatment. Description of Procedure Patient identified in the preoperative holding. Informed consent given. Operative extremity marked. Patient received intravenous antibiotics. Patient brought to the operating room where underwent general anesthetic by anesthesia team. Positioned supine on operating room table. Time-out performed confirming the patient, site of the surgery and the plan. Left arm prepped and draped usual sterile surgical fashion using ChloraPrep skin solution. Hand and forearm exsanguinated and arm tourniquet inflated to 250 mmHg. Anatomic landmarks for the elbow mapped out. Transverse incision made 4 cm distal to the elbow crease palmar aspect. Care taken isolate the sensory nerves. Dissection then carried down through the fascia. Several veins were encountered which were ligated with the clip maintenance supervisor 2nd shift. Using a finger sweep we then bluntly dissected up to the biceps area. The tendon was noted to be fully rupture. Distal tendon was able to be located and brought out of the wound. This was cleaned up with a tenotomy scissor and a whipstitch with 5 fiber loop placed into tendon. The tendon was sized and noted to be a size 6. We then proceeded with preparation of the radial tuberosity. Dissection carried down carefully to the tuberosity and verified with image intensification. Unicortical drilling with a 8 mm Reamer. The tendon button was then able to be inserted to the dorsal aspect of the radius. Thorough irrigation and suction and the tendon was then docked into the radial tuberosity. Secondary fixation with a 7 x 10 mm bio tenodesis screw. Image intensification confirmed final placement. Elbow was brought through full range of motion and no impingement was noted. Wound thoroughly irrigated. The subcutaneous tissue repaired with 3-0 Monocryl interrupted suture. The skin repaired with 3-0 Monocryl running subcuticular stitch and Dermabond. Sterile dressing applied. The patient was then woken from anesthesia, extubated and taken to the recovery room in stable condition. All sponge, needle, instrument counts were correct at the end of the case. Implants 7 x 10 mm bio tenodesis screw Estimated Blood Loss -5.0 Tourniquet Time 60 Drains No Packing No Pathology None sent Complications None Condition Stable Disposition PACU [facility] Billing Surgery - Charge Forward: Surgery Billing ([id number])
[2022-12-29] MEDS: oxyCODONE HCL (*CRX) 5 MG TAB IR PO (10:12)
== END 2022-12-29 10:38 | disposition home or self-care (01) ==
PROVIDERS: PCP Internal Medicine; Visit Provider Orthopaedic Surgery
PROC: (CPT 24341; principal; 2022-12-29 07:30)
DX: S46.212A Strain of muscle, fascia and tendon of other parts of biceps, left arm, initial encounter (principal); X50.0XXA Overexertion from strenuous movement or load, initial encounter; E78.00 Pure hypercholesterolemia, unspecified; Z79.82 Long term (current) use of aspirin; F17.210 Nicotine dependence, cigarettes, uncomplicated; E66.9 Obesity, unspecified; Z68.31 Body mass index [BMI] 31.0-31.9, adult
CPT/HCPCS: 24342; 93005; 99199; A4565; A9270; C1713; J0690; J1100; J1170; J1885; J2250; J2371; J2405; J2704; J3010; J7120

== ENCOUNTER 2024-08-06 00:10 | Day surgery (SDC) | payer MEDICARE, SELFPAY ==
[2024-07-29 13:42] VITALS: BMI 29.5
--- OUTSIDE RECORDS SUMMARY | 2024-08-06 00:13 | XMS_ITS | Clinical Summary ---
Author Organization [facility] [employer] Address [address] [place] [address] Care Team Providers Care Music Autographer Name Role Phone IsaFlorentino thomasonhanna Kay DO Primary Care Provider [phone] Source Comments [facility],non-owned Affiliates and Associated Physician Practices is amultiple site organization consisting of ambulatory clinics and hospital sitesin [place] and [place]. This disclosure is being madepursuant to the Care Everywhere program and may not contain all information available regarding this patient. Last updated 17.[facility] [employer] Allergies No known active allergies Medications * Be aware that medications may not be up to date on this document. Alwaysverify current medications with the patient. LISINOPRIL PO Take 20 mg by mouth Once daily Active omeprazole (PRILOSEC) 20 MG capsule Take 20 mg by mouth daily before breakfast Active doxazosin (CARDURA) 8 MG tablet Take 8 mg by mouth at bedtime Active divalproex ER 24hr (DEPAKOTE ER) 250 MG tablet Take 1 (one) tablet by mouth once daily 7 tablet 1 Active divalproex ER 24hr (DEPAKOTE ER) 500 MG tablet Take 1 (one) tablet by mouth once daily 90 tablet 3 1 Active rimegepant (NURTEC) 75 MG tablet Take 75 mg by mouth once daily as needed for Migraine 8 tablet 5 1 Active Family History Medical History Relation Name Comments Cancer - Other Mother Relation Name Status Comments Father Mother Alive Social History Tobacco Use Types Packs/Day Years Used Date Smoking Tobacco: Every Day Cigarettes Started: 03/10/2013 Smokeless Tobacco: Never Alcohol Use Standard Drinks/Week Comments Yes 0 (1 standard drink = 0.6 oz pur e alcohol) occasionally Sex and Gender Information Value Date Recorded Sex Assigned at Not on file Legal Sex Male 11:35 AM BLEND TECHNICIAN Gender Identity Male 12/19/2016 1:13 PM CDT Sexual Orientation Not on file Occupation Industry Job Start Date Job End Date unemployed Not on file Not on file Not on file Last Filed Vital Signs Vital Sign Reading Time Taken Comments Blood Pressure 129/72 11/11/2020 9:00 AM CDT Pulse 102 11/11/2020 9:00 AM CDT Temperature 36.7 C (98 F) 04/14/2015 3:41 PM BLEND TECHNICIAN Respiratory Rate 18 04/14/2015 3:41 PM BLEND TECHNICIAN Oxygen Saturation 98% 11/11/2020 9:00 AM CDT Inhaled Oxygen Concentration - - Weight 98.9 kg (218 lb) 11/11/2020 9:00 AM CDT Height 175.3 cm (5' 9) 11/11/2020 9:00 AM CDT Body Mass Index 32.19 11/11/2020 9:00 AM CDT Plan of Treatment Health Maintenance Due Date Last Done Comments COLOGUARD (AGES 45-75) - COL ON CA SCREENING 1960 COLON MONITORING 1960 COLONOSCOPY - COLON CA SCREENING 1960 CT COLONOGRAPHY - COLON CA SCREENING 1960 Colorectal Cancer Screening 1960 FIT - COLON CA SCREENING 1960 FLEX SIG - COLON CA SCREENING 1960 LIPID TESTING 1960 HIV SCREENING 08/01/1974 HEPATITIS C SCREENING 07/28/1977 DTAP/TDAP/TD VACCINES (1 - Tdap) 08/01/1978 PNEUMOCOCCAL VACCINE 50+ (1 of 1 - PCV) 08/01/2009 ZOSTER VACCINE (1 of 2) 08/01/2009 SCREENING FOR DIABETES 11/11/2020 7, 04/14/2015 COVID-19 VACCINE (1 - 2023-2 5 season) 2023 DEPRESSION SCREENING 03/05/2024 AAA SCREENING 08/01/2024 INFLUENZA VACCINE (Season Ended) 2024 Respiratory Syncytial Virus (RSV) Vaccine Pt: or over 60 yrs (1 - 1-dose 75+ series) 08/01/2034 HEPATITIS B VACCINE Aged Out No longe r eligible based on patient's age to complete this topic HIB VACCINE Aged Out No longer eligi ble based on patient's age to complete this topic HPV VACCINE Aged Out No longer eligi ble based on patient's age to complete this topic MENINGOCOCCAL (Group B) VACCINE SHARED DECISION-MAKING Aged Out No longer eligible based on patient's age to complete this topic MENINGOCOCCAL GROUPS A/C/Y/W VACCINE Aged Out No longer eligible b ased on patient's age to complete this topic Procedures Procedure Name Priority Date/Time Associated Diagnosis Comments COMPREHENSIVE METABOLIC PANEL Routine 04/19/2016 12:18 PM BLEND TECHNICIAN Convulsions, unspecified convulsion type from Last 3 Months or Most Recently Relevant to Health Maintenance Results * (ABNORMAL) COMPREHENSIVE METABOLIC PANEL (04/19/2016 12:18 PM BLEND TECHNICIAN) Glucose 109(H) 74 - 106 mg/dL [facility] ACCOUNT BILL BUN 11 7 - 21 mg/dL [facility] ACCOUNT [facility]ILL Creatinine 0.87 0.50 - 1.30 mg/dL [facility] ACCOUNT BILL eGFR by MDRD >60 >60 mL/min/1.7 3m2 [facility] ACCOUNT BILL eGFR by MDRD >60 >60 mL/min/1.7 3m2 [facility] ACCOUNT BILL Sodium 134(L) 136 - 145 mmol/L [facility] ACCOUNT BILL Potassium 4.5 3.5 - 5.1 mmol/L [facility] ACCOUNT BILL Chloride 100 98 - 107 mmol/L [facility] ACCOUNT BILL CO2 29 22 - 31 mmol/L [facility] ACCOUNT BILL Calcium 9.0 8.5 - 10.1 mg/dL [facility] ACCOUNT BILL Protein Total 7.4 6.4 - 8.2 gm/dL [facility] ACCOUNT BILL Albumin 3.8 3.4 - 5.0 gm/dL [facility] ACCOUNT BILL Bilirubin Total 0.3 0.2 - 1.0 mg/dL [facility] ACCOUNT BILL Alkaline Phosphatase 98 38 - 126 U/L [facility] ACCOUNT BILL AST 16 5 - 40 U/L [facility] ACCOUNT BILL ALT 27 13 - 61 U/L [facility] ACCOUNT BILL Blood BLOOD SPECIMEN / Unknown 04/19/2016 12:18 PM BLEND TECHNICIAN 04/19/2016 Narrative Resulting Agency Comment [facility] [address] [facility] [facility] [id number] Gurpreet Jamison MD LAB - CHEMISTRY ORDERABLES Final Result [facility] ACCOUNT BILL [address] [place] [id number] from Last 3 Months or Most Recently Relevant to Health Maintenance Insurance [facility] Care Teams Music Autographer Relationship Specialty Start Date End Date Giuseppe Becerra DO [address] [facility] [address] [address] [place], [place] [id number] PCP - General Internal Medicine 04/14/15
[2024-08-06 09:53] VITALS: BP 128/86; PULSE 98; RESP 16; TEMP 36.5; O2SAT 99
[2024-08-06] MEDS: LACTATED RINGERS 1,000 ML 150 ML IV CONT (10:10)
--- NOTE | 2024-08-06 10:17 | WPDANESEPPF ---
Anes - Initial Pre Proc Eval Procedure: Operation Date: 08/06/24 11:30 Proposed Procedures p Colonoscopy - Zechariah Hagan MD Date/Time: 08/06/24 10:17 Surgeon: Zechariah Hagan MD Pre Op Diagnosis: Personal history of colon polyps, unspecified Patient Data Age: 64 Gender: M Height: 1.75 m Weight: 90.4 kg Last Vital Signs Temp 97.7 F 08/06/24 09:53 Pulse 98 08/06/24 09:53 Resp 16 08/06/24 09:53 BP 128/86 08/06/24 09:53 Pulse Ox 99 08/06/24 09:53 O2 Del Method Room Air 08/06/24 09:53 Allergies Allergy/AdvReac Type Severity Reaction Status Date / Time No Known Allergies Allergy Verified 08/06/24 09:50 Home Medications ?Medication ?Instructions ?Recorded ?Confirmed ?Type aspirin 81 mg tablet,delayed 81 mg PO DAILY 04/04/19 08/06/24 History release (Adult Low Dose Aspirin) ibuprofen 800 mg tablet 800 mg PO TID PRN pain #30 tabs 12/29/22 07/29/24 Rx lisinopril 40 mg tablet 40 mg PO DAILY #90 tabs 03/03/24 08/06/24 Rx benzonatate 200 mg capsule 200 mg PO TID PRN cough #30 caps 04/16/24 07/29/24 Rx omeprazole 40 mg capsule,delayed 40 mg PO DAILY #90 caps 06/02/24 08/06/24 Rx release Patient hx anesthesia problems: none Family hx anesthesia problems: none Results Review: All pre-operative results and documents have been reviewed as part of the pre-operative evaluation. [facility] Past Medical History Medical History Encounter for postoperative care Rupture of left distal biceps tendon Depression Pure hypercholesterolemia Seizures Surgical History Surgical History H/O shoulder replacement History of knee surgery Family History Family History Sibling Patient's sister is in good health Patient's brother is in good health Father Patient's father is Acute myocardial infarction Unknown Hypertension Diabetes mellitus Cerebrovascular accident Breast cancer Social History Social History Smoking packs per day: 1 Smoking cigarettes per day: 20.0 Years smoked: 20 Smoking pack-years: 20.00 Smoking status: Current every day smoker Tobacco type: cigarettes Second hand tobacco smoke exposure: No Smoking end date: 03/05/17 Alcohol intake: never Substance use: never Substance use type: does not use Living arrangements: with family Additional living arrangements comments: spouse Ana Laura Spiritual care concerns: No Anes - Eval Final PreProcedure Day of Procedure 08/06/24 10:17 Patient weight: overweight Lungs: normal air movement Airway: Mallampati scale class II Neurological: alert and oriented Last oral intake: >/= 8 hours ASA classification: III Emergent: no Anesthetic plan: proceed Anesthesia type and monitoring: general GIVS and standard monitoring Results Review: All pre-operative results and documents have been reviewed as part of the pre-operative evaluation. HTN, NAVEED on CPAP, current smoker 1 ppd and smoked at 5 am, stable resp status. 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 Informed Consent: The patient's anesthetic plan and its attendant risks and benefits were discussed with the patient/family/POA. Questions were solicited and answers provided to the satisfaction of the patient/family/POA.
--- NOTE | 2024-08-06 10:27 | PM.IMHP ---
H&P: HPI History of Present Illness Date/Time: 08/06/24 10:27 Chief Complaint: History of colon polyps Narrative: The patient has a history of colonic polyps, the last colonoscopy was in 2021, finding 1 hyperplastic polyp in the rectum, however the prep was not ideal. In 2010 he had several tubular adenomas and 1 tubulovillous adenoma. Review of Systems Review of Systems: All systems reviewed & are unremarkable except as noted in HPI and below PMFSH Past Medical History Medical History Encounter for postoperative care Rupture of left distal biceps tendon Depression Pure hypercholesterolemia Seizures Surgical History Surgical History H/O shoulder replacement History of knee surgery Family History Family History Sibling Patient's sister is in good health Patient's brother is in good health Father Patient's father is Acute myocardial infarction Unknown Hypertension Diabetes mellitus Cerebrovascular accident Breast cancer Social History Social History Smoking packs per day: 1 Smoking cigarettes per day: 20.0 Years smoked: 20 Smoking pack-years: 20.00 Smoking status: Current every day smoker Tobacco type: cigarettes Second hand tobacco smoke exposure: No Smoking end date: 03/05/17 Alcohol intake: never Substance use: never Substance use type: does not use Living arrangements: with family Additional living arrangements comments: spouse Ana Laura Spiritual care concerns: No Meds Home Medications and Allergies Home Medications ?Medication ?Instructions ?Recorded ?Confirmed ?Type aspirin 81 mg tablet,delayed 81 mg PO DAILY 04/04/19 08/06/24 History release (Adult Low Dose Aspirin) ibuprofen 800 mg tablet 800 mg PO TID PRN pain #30 tabs 12/29/22 07/29/24 Rx lisinopril 40 mg tablet 40 mg PO DAILY #90 tabs 03/03/24 08/06/24 Rx benzonatate 200 mg capsule 200 mg PO TID PRN cough #30 caps 04/16/24 07/29/24 Rx omeprazole 40 mg capsule,delayed 40 mg PO DAILY #90 caps 06/02/24 08/06/24 Rx release Allergies Allergy/AdvReac Type Severity Reaction Status Date / Time No Known Allergies Allergy Verified 08/06/24 09:50 Vital Signs Vital Signs - 24 hr 08/06/24 09:53 Temperature 97.7 F Pulse Rate 98 Respiratory Rate 16 Blood Pressure 128/86 Pulse Oximetry 99 Oxygen Delivery Room Air Exam Const: General: cooperative and healthy appearing Resp: Effort & Inspection: normal respiratory effort and able to speak in complete sentences Auscultation: clear to auscultation bilaterally Cardio: Rate: regular rate Rhythm: regular rhythm GI: Inspection: normal to inspection GI Palp: No No hepatosplenomegaly present Auscultation: normal bowel sounds Rectal Exam: deferred Skin: General skin exam: normal color Psych: Appearance: grossly normal Mental Status: mental status grossly normal Assessment and Plan Assessment and plan (1) Colon polyps: Code(s): K63.5 - Polyp of colon Status: Acute Assessment and Plan: The patient is deemed a good candidate for the procedure. Consent signed. Will proceed.
[2024-08-06] MEDS: SIMETHICONE ORAL SUSPENSION 20 MG/0.3 ML 30 ML BOTTLE 0.6 ML IRRIGATION (10:43)
--- NOTE | 2024-08-06 10:55 | S_PTH ---
PATIENT: Giles Diaz LOC: [facility] U#:[id number] AGE/SX: 64/M ROOM: RE08/06/[address]: Zechariah Hagan MD : 1960 BED: DIS: 08/06/2024 SPEC #: [id number] RECD: 08/06/24 12:48 STATUS: JOSE MARTIN REQ #: [id number] PETER: 08/06/24 10:[address]: Zechariah Hagan DEPT: [facility] Surgical RECD BY: Janina Samaniego ENTERED: 08/06/24 12:49 SP TYPE: Surgical OTHR DR: Rafa Abel, Tissues: A - Colon Polypectomy B - Colon Polypectomy Procedures: Hematoxylin and Eosin Stain Gross and Microscopic Level 4
[2024-08-06 10:57] VITALS: BP 112/72; PULSE 85; RESP 20; O2SAT 98
[2024-08-06 11:07] VITALS: BP 116/79; PULSE 86; RESP 20; O2SAT 98
[2024-08-06 11:17] VITALS: BP 155/83; PULSE 75; RESP 22; O2SAT 100
== END 2024-08-06 11:24 | disposition home or self-care (01) ==
PROVIDERS: PCP Internal Medicine; Referring Provider Internal Medicine; Visit Provider Internal Medicine Gastroenterology
PROC: 0DJD8ZZ Inspection of Lower Intestinal Tract, Via Natural or Artificial Opening Endoscopic (ICD-10-PCS; CPT 45378; principal; 2024-08-06 11:30)
DX: Z12.11 Encounter for screening for malignant neoplasm of colon (principal); D12.2 Benign neoplasm of ascending colon; D12.3 Benign neoplasm of transverse colon; K64.8 Other hemorrhoids; K57.30 Diverticulosis of large intestine without perforation or abscess without bleeding; I10 Essential (primary) hypertension; G47.33 Obstructive sleep apnea (adult) (pediatric); F32.A Depression, unspecified; E78.00 Pure hypercholesterolemia, unspecified; R56.9 Unspecified convulsions; F17.210 Nicotine dependence, cigarettes, uncomplicated; Z79.82 Long term (current) use of aspirin; Z79.1 Long term (current) use of non-steroidal anti-inflammatories (NSAID); Z99.89 Dependence on other enabling machines and devices; Z98.890 Other specified postprocedural states; Z80.3 Family history of malignant neoplasm of breast; Z82.49 Family history of ischemic heart disease and other diseases of the circulatory system
CPT/HCPCS: 45385; 88305; J2003; J2704; J7120

== ENCOUNTER 2024-10-23 09:31 | Outpatient (CLI) | payer MEDICARE, SELFPAY ==
--- NOTE | ~2024-10-23 | XR_ITS ---
XR ankle RT 2V 10/23/2024 10:08 INDICATION: Right ankle pain PROCEDURE: 2 views right ankle COMPARISON: No prior studies for comparison. FINDINGS: Fracture, dislocation or subluxation is not identified. Ankle mortise intact. The soft tissues appear within normal limits. No foreign bodies are identified. IMPRESSION: 1: NO ACUTE BONE OR JOINT ABNORMALITY IDENTIFIED. Reviewed, dictated and finalized at location O.
--- OUTSIDE RECORDS SUMMARY | 2024-10-23 10:04 | XMS_ITS | Clinical Summary ---
Author Organization [facility] Address [address] [place] [address] Care Team Providers Care Glass Etcher Name Role Phone IsaFlorentino thomasonhanna Kay DO Primary Care Provider [phone]- [phone] Source Comments [facility],non-owned Affiliates and Associated Physician Practices is amultiple site organization consisting of ambulatory clinics and hospital sitesin [place], [place], [place] and [place]. This disclosure is being madepursuant to the Care Everywhere program and may not contain all information available regarding this patient. Last updated 17.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 Gender Identity Male 12/19/2016 1:13 PM CDT Sexual Orientation Not on file Occupation Industry Job Start Date Job End Date unemployed Not on file Not on file Not on file Last Filed Vital Signs Vital Sign Reading Time Taken Comments Blood Pressure 129/72 11/11/2020 9:00 AM CDT Pulse 102 11/11/2020 9:00 AM CDT Temperature 36.7 C (98 F) 04/14/2015 3:41 PM MULTI MEDIA SPECIALIST Respiratory Rate 18 04/14/2015 3:41 PM MULTI MEDIA SPECIALIST Oxygen Saturation 98% 11/11/2020 9:00 AM CDT [...] Tdap) 08/01/1978 PNEUMOCOCCAL VACCINE 50+ (1 of 2 - PCV) 08/01/1978 ZOSTER VACCINE (1 of 2) 08/01/2009 SCREENING FOR DIABETES 11/11/2020 7, 04/14/2015 COVID-19 VACCINE (1 - 2023-2 5 season) 2023 DEPRESSION SCREENING 03/05/2024 MEDICARE AWV CALENDAR YEAR 2024 AAA SCREENING 08/01/2024 INFLUENZA VACCINE (#1) 2024 Respiratory Syncytial Virus (RSV) Vaccine Pt: [...] COMPREHENSIVE METABOLIC PANEL Routine 04/19/2016 12:18 PM MULTI MEDIA SPECIALIST Convulsions, unspecified convulsion type from Last 3 Months or Most Recently Relevant to Health Maintenance Results * (ABNORMAL) COMPREHENSIVE METABOLIC PANEL (04/19/2016 12:18 PM MULTI MEDIA SPECIALIST) Glucose 109(H) 74 - 106 mg/dL [facility] [...] BLOOD SPECIMEN / Unknown 04/19/2016 12:18 PM MULTI MEDIA SPECIALIST 04/19/2016 Narrative Resulting Agency Comment [facility] [address] [facility] [id number] us Gurpreet Jamison MD LAB - CHEMISTRY ORDERABLES Final Result [facility] ACCOUNT BILL [id number] [place] [address] from Last 3 Months or Most Recently Relevant to Health Maintenance Insurance [employer] SELF PAY NO INSURANCE Member Subscriber Plan / Payer (Ef fective for All Dates) Name:Giles Rojas Member ID:Not on file Relation to Subscriber:Not on file Name:GILES ROJAS Subscriber ID:Not on file (Home) Address: [facility] [place] [address] Payer ID:Not on file Group ID:Not on file Type:Self Pay Address: [place], [place] [employer] Care Teams Glass Etcher Relationship Specialty Start Date End Date Giuseppe Becerra DO [address] [place], [place] [id number] PCP - General Internal Medicine 04/14/15
--- OUTSIDE RECORDS SUMMARY | 2024-10-23 10:04 | XMS_ITS | Clinical Summary ---
Author Organization [facility] Address [address] [place] [address] Care Team Providers Care Integrated Program Teacher Name Role Phone Unavailable Primary Care Provider Unavailabl e Social History Tobacco Use Types Packs/Day Years Used Date Smoking Tobacco: Never Assessed Sex and Gender Information Value Date Recorded Sex Assigned at Not on file Legal Sex Male 5:31 PM CDT Gender Identity Not on file Sexual Orientation Not on file Plan of Treatment Health Maintenance Due Date Last Done Comments Colorectal Cancer Screening Colonoscopy (10 Years) 1960 Hepatitis C 08/01/1977 DTaP, Tdap and Td Vaccines ( 1 - Tdap) 08/01/1978 Pneumococcal Vaccine: 50+ Ye ars (1 of 1 - PCV) 08/01/2009 Zoster Vaccines (1 of 2) 08/01/2009 COVID-19 Vaccine ( - 2023-2 5 season) 2023 RSV Immunization or 60+ Years (1 - 1-dose 75+ series) 08/01/2034 Meningococcal B Vaccine Aged Out No l onger eligible based on patient's age to complete this topic Meningococcal Vaccine Aged Out No sha neli eligible based on patient's age to complete this topic RSV Immunizations Under 20 Months Aged Out No longer eligible based on patient's age to complete this topic
== END 2024-10-23 09:32 | disposition home or self-care (01) ==
PROVIDERS: PCP Internal Medicine; Visit Provider Internal Medicine
DX: M25.571 Pain in right ankle and joints of right foot (principal)
CPT/HCPCS: 73600

== ENCOUNTER 2024-11-04 14:30 | Outpatient (RCR) | payer MEDICARE, SELFPAY ==
--- NOTE | 2024-10-27 11:58 | PTOPEVAL1 ---
Assessment and note entered by Quinten Romo, PT Evaluation Information Assessment Status Evaluation ICD-10 Condition Codes (PT) Dizziness and Giddiness R42,BPPV H81.12 Onset 5+ years Subjective Information Patient reports history of head injury 10 years ago. States that he is getting dizziness when looking up or rolling over in bed. Loses his balance when he closes his eyes as well. Feels that the room and world is spinning around him. Denies lightheadedness but will occasionally gets head rushes. Reported Pain Level Pain Score 0: Self Report Assessment PT Clinical Summary Patient was positive for BPPV to lefty side this date. Symptoms were resolved after performance of 2 Michelle maneuvers. Patient was educated in home management post Michelle and will follow up in 1 week to ensure resolution of symptoms. Plan of Care Interventions Manual Therapy,Neuro Re-education PT Services Indicated Yes Treatment Frequency and 1x/week for 4 visits as needed Duration These treatments will address the objective and functional deficits as defined above. The patient will be advanced safely and appropriately in order for the patient to progress towards his/her prior level of function. Additional exercises will be introduced and as well as a comprehensive home exercise program upon discharge, if needed, ?to ensure carryover of functional gains achieved in the clinic. This treatment plan has been reviewed and agreement upon by the patient.
--- NOTE | 2024-11-04 14:57 | PTOPDC ---
Assessment and note entered by Quinten Romo, PT Evaluation Information Assessment Status Evaluation ICD-10 Condition Codes (PT) Dizziness and Giddiness R42,BPPV H81.12 Onset 5+ years Subjective Information Reports resolution of symptoms at this time. Able to lay in his bed and roll over without dizziness for the first time in a long time. No concerns and understanding home treatment. Reported Pain Level Pain Score 0: Self Report Assessment PT Clinical Summary Patient met goals for therapy at this time and is suitable for discharge to [facility] at this time. Demonstrates understanding of HEP and home Michelle management. Plan of Care PT Services Indicated Yes
--- NOTE | 2024-11-04 14:57 | PTOPDC ---
Assessment and note entered by Quinten Romo, PT Evaluation Information Assessment Status Evaluation ICD-10 Condition Codes (PT) Dizziness and Giddiness R42,BPPV H81.12 Onset 5+ years Subjective Information Reports resolution of symptoms at this time. Able to lay in his bed and roll over without dizziness for the first time in a long time. No concerns and understanding home treatment. Reported Pain Level Pain Score 0: Self Report Assessment PT Clinical Summary Patient met goals for therapy at this time and is suitable for discharge to [facility] at this time. Demonstrates understanding of HEP and home Michelle management. Plan of Care PT Services Indicated Yes
== END 2024-11-04 16:03 | disposition home or self-care (01) ==
LOC: ANHGOSHPT 14:30
PROVIDERS: PCP Internal Medicine; Visit Provider Otolaryngology
DX: H81.12 Benign paroxysmal vertigo, left ear (principal)
CPT/HCPCS: 95992; 97112; 97161

== ENCOUNTER 2024-11-07 09:34 | Outpatient (CLI) | payer MEDICARE, SELFPAY ==
--- NOTE | 2024-11-07 09:37 | EST_ITS ---
Patient Info Name: Giles Diaz Age: 64 years : 1960 Gender: Male Ht: 69 in Wt: 200 lbs BSA: 2.12 m2 HR: 84 bpm BP: 150 / 79 mmHg Exam Date: 11/07/2024 9:49 AM Patient Status: O Admit Date: 11/07/2024 Exam Type: CA stress echo Treadmill exercise stress echocardiogram is performed. Staff Attending Provider: Rafa Abel DO Exercise Technologist: Wellington Abrams III Exercise Physician: Onur Lima DO Summary 1. 1. Negative Tank exercise stress test for ischemic ST changes by ECG criteria. 2. 2. Reduced functional capacity, achieving 7 METs of workload. 3. 3. Baseline hypertension with hypertensive response to exercise. 4. 4. Appropriate HR response to exercise. 5. 5. Appropriate HR recovery at 1 minute post exercise. 6. 6. Negative stress echocardiogram for ischemia by wall motion analysis. 7. 7. Patient informed of the above results. Stress Echo Findings Left Ventricle Appropriate increase in LV endocardial thickening with systole. Appropriate augmentation of contractility with systole. No wall motion abnormality. Left Ventricle Normal LV systolic function, no wall motion abnormality. Protocol: Tank Stress ECG Details Stage: REST Duration (min): 13 min : 20 sec Speed (mph): 0.0 Grade (%): 0 HR (bpm): 93 SBP (mmHg): 150 DBP (mmHg): 79 METS: --- Stage: RECOVERY Duration (min): 0 min : 58 sec Speed (mph): 0.0 Grade (%): 0 HR (bpm): 114 SBP (mmHg): 215 DBP (mmHg): 92 METS: --- Stage: STAGE 1 Duration (min): 2 min : 0 sec Speed (mph): 1.7 Grade (%): 10 HR (bpm): 122 SBP (mmHg): 150 DBP (mmHg): 79 METS: --- Stage: STAGE 1 Duration (min): 3 min : 0 sec Speed (mph): 1.7 Grade (%): 10 HR (bpm): 129 SBP (mmHg): 193 DBP (mmHg): 68 METS: --- Stage: RECOVERY Duration (min): 1 min : 58 sec Speed (mph): 0.0 Grade (%): 0 HR (bpm): 105 SBP (mmHg): 215 DBP (mmHg): 92 METS: --- Stage: STAGE 2 Duration (min): 2 min : 1 sec Speed (mph): 0.0 Grade (%): 0 HR (bpm): 140 SBP (mmHg): 215 DBP (mmHg): 92 METS: --- Stage: RECOVERY Duration (min): 2 min : 58 sec Speed (mph): 0.0 Grade (%): 0 HR (bpm): 100 SBP (mmHg): 137 DBP (mmHg): 69 METS: --- Stage: RECOVERY Duration (min): 3 min : 15 sec Speed (mph): 0.0 Grade (%): 0 HR (bpm): 96 SBP (mmHg): 137 DBP (mmHg): 69 METS: --- Stage: STAGE 2 Duration (min): 2 min : 0 sec Speed (mph): 2.5 Grade (%): 12 HR (bpm): 141 SBP (mmHg): 215 DBP (mmHg): 92 METS: --- Stage: STAGE 1 Duration (min): 1 min : 0 sec Speed (mph): 1.7 Grade (%): 10 HR (bpm): 112 SBP (mmHg): 150 DBP (mmHg): 79 METS: --- Stage: REST Duration (min): 2 min : 40 sec Speed (mph): 0.0 Grade (%): 0 HR (bpm): 84 SBP (mmHg): 150 DBP (mmHg): 79 METS: --- Stage: STAGE 2 Duration (min): 1 min : 0 sec Speed (mph): 2.5 Grade (%): 12 HR (bpm): 135 SBP (mmHg): 193 DBP (mmHg): 68 METS: --- Rest HR: 93 bpm Peak HR: 141 bpm Rest Sys BP: 150 mmHg Peak Sys BP: 215 mmHg Max Pred HR: 155 bpm % Max Pred HR: 91 % Target HR: 132 bpm Max RPP: 30,315 bpm*mmHg Meyers Score: -8 BP Response: Patient exhibited a hypertensive response with stress Termination Reason: Reached target heart rate or workload Cardiac Symptoms: Shortness of breath Max ST Seg Deviation: -3 mm Total Time: 5 min : 1 sec Rest Celis BP: 79 mmHg Peak Celis BP: 92 mmHg Angina Score: None Total METS: 7.1 Resting ECG Sinus rhythm. Stress ECG Upsloping 0.[address] depression in inferior leads. Arrhythmias None. Report Signatures Stress ECG Echo
--- OUTSIDE RECORDS SUMMARY | 2024-11-07 09:40 | XMS_ITS | Clinical Summary ---
Author Organization [facility] Address [address] [place] [address] Care Team Providers Care Edge Grinder Machine Name Role Phone IsaFlorentino thomasonhanna Kay DO Primary Care Provider [phone]- [phone] Source Comments [facility],non-owned Affiliates and Associated Physician Practices is amultiple site organization consisting of ambulatory clinics and hospital sitesin [place], [place], [place] and [place]. This disclosure is being madepursuant to the Care Everywhere program and may not contain all information available regarding this patient. 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 Gender Identity Male 12/19/2016 1:13 PM CDT Sexual Orientation Not on file Occupation Industry Job Start Date Job End Date unemployed Not on file Not on file Not on file Last Filed Vital Signs Vital Sign Reading Time Taken Comments Blood Pressure 129/72 11/11/2020 9:00 AM CDT Pulse 102 11/11/2020 9:00 AM CDT Temperature 36.7 C (98 F) 04/14/2015 3:41 PM ELECTRO MECHANICAL ENGINEER Respiratory Rate 18 04/14/2015 3:41 PM ELECTRO MECHANICAL ENGINEER Oxygen Saturation 98% 11/11/2020 9:00 AM CDT [...] 08/01/2009 SCREENING FOR DIABETES 11/11/2020 7, 04/14/2015 DEPRESSION SCREENING 03/05/2024 MEDICARE AWV CALENDAR YEAR 2024 AAA SCREENING 08/01/2024 COVID-19 VACCINE (1 - 2023-2 5 season) 2024 INFLUENZA VACCINE (#1) 2024 Respiratory Syncytial Virus [...] COMPREHENSIVE METABOLIC PANEL Routine 04/19/2016 12:18 PM ELECTRO MECHANICAL ENGINEER Convulsions, unspecified convulsion type from Last 3 Months or Most Recently Relevant to Health Maintenance Results * (ABNORMAL) COMPREHENSIVE METABOLIC PANEL (04/19/2016 12:18 PM ELECTRO MECHANICAL ENGINEER) Glucose 109(H) 74 - 106 mg/dL [facility] [...] BLOOD SPECIMEN / Unknown 04/19/2016 12:18 PM ELECTRO MECHANICAL ENGINEER 04/19/2016 Narrative Resulting Agency Comment [facility] [address] [id number] us Gurpreet Jamison MD LAB - CHEMISTRY ORDERABLES Final Result [facility] ACCOUNT BILL [address] [place] [address] from Last 3 Months or Most Recently Relevant to Health Maintenance Insurance [employer] SELF PAY NO INSURANCE Member Subscriber Plan / Payer (Ef fective for All Dates) Name:Giles Rojas Member ID:Not on file Relation to Subscriber:Not on file Name:GILES ROJAS Subscriber ID:Not on file (Home) Address: [facility] [address] [place] [address] Payer ID:Not on file Group ID:Not on file Type:Self Pay Address: [place], [place] [employer] Care Teams Edge Grinder Machine Relationship Specialty Start Date End Date Giuseppe Becerra DO [address] [address] [place], [place] [id number] PCP - General Internal Medicine 04/14/15
== END 2024-11-07 09:35 | disposition home or self-care (01) ==
PROVIDERS: PCP Internal Medicine; Visit Provider Internal Medicine
DX: R07.89 Other chest pain (principal)
CPT/HCPCS: 93351

== ENCOUNTER 2025-02-04 08:21 | Outpatient (CLI) | payer MEDICARE, SELFPAY ==
--- NOTE | ~2025-02-04 | XR_ITS ---
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 Findings: No acute fracture or malalignment. No significant degenerative changes. Soft tissues unremarkable. Impression: No acute fracture or malalignment. Reviewed, dictated and finalized at location P. ASSEMBLER Impression: No acute fracture or malalignment.
--- OUTSIDE RECORDS SUMMARY | 2025-02-04 08:39 | XMS_ITS | Clinical Summary ---
Author Organization [facility] Address [address] [place] [address] Care Team Providers Care Counseling Services Director Name Role Phone Unavailable Primary Care Provider [...] of 2) 08/01/2009 COVID-19 Vaccine ( - 2024-2 6 season) 2024 Influenza Adult (#1) 2024 RSV Immunization or 60+ Years (1 - 1-dose 75+ series) 08/01/2034 Hepatitis A Vaccines Aged Out No long er eligible based on patient's age to complete this topic Meningococcal B Vaccine Aged Out No l onger eligible based on patient's age to complete this topic Meningococcal Vaccine Aged Out No sha neli eligible based on patient's age to complete this topic RSV Immunizations Under 20 Months Aged Out No longer eligible based on patient's age to complete this topic
--- OUTSIDE RECORDS SUMMARY | 2025-02-04 08:39 | XMS_ITS | Clinical Summary ---
Author Organization [facility] Address [address] [place] [address] Care Team Providers Care Instructional Leader Name Role Phone IsaFlorentino thomasonhanna Kay DO Primary Care Provider [phone]- [phone] Source Comments [facility],non-owned Affiliates and Associated Physician Practices is amultiple site organization consisting of ambulatory clinics and hospital sitesin [place], [place], [place] and [place]. This disclosure is being madepursuant to the Care Everywhere program and may not contain all information available regarding this patient. Last updated 17.[facility] Allergies No known active allergies Medications * [...] Used Date Smoking Tobacco: Every Day Cigarettes 18.1 Started: 03/10/2013 Smokeless Tobacco: Never Alcohol Use Standard Drinks/Week Comments Yes 0 (1 standard drink = 0.6 oz pur e alcohol) occasionally Sex and Gender Information Value Date Recorded Sex Assigned at Not on file Legal Sex Male 11:35 AM PEDIATRIC CRITICAL CARE NURSE Gender Identity Male 12/19/2016 1:13 PM CDT Sexual Orientation Not on file Occupation Industry Job Start Date Job End Date unemployed Not on file Not on file Not on file Last Filed Vital Signs Vital Sign Reading Time Taken Comments Blood Pressure 129/72 11/11/2020 9:00 AM CDT Pulse 102 11/11/2020 9:00 AM CDT Temperature 36.7 C (98 F) 04/14/2015 3:41 PM PEDIATRIC CRITICAL CARE NURSE Respiratory Rate 18 04/14/2015 3:41 PM PEDIATRIC CRITICAL CARE NURSE Oxygen Saturation 98% 11/11/2020 9:00 AM CDT [...] AAA SCREENING 08/01/2024 COVID-19 VACCINE (1 - 2024-2 6 season) 2024 INFLUENZA VACCINE (#1) 2024 Respiratory [...] COMPREHENSIVE METABOLIC PANEL Routine 04/19/2016 12:18 PM PEDIATRIC CRITICAL CARE NURSE Convulsions, unspecified convulsion type from Last 3 Months or Most Recently Relevant to Health Maintenance Results * (ABNORMAL) COMPREHENSIVE METABOLIC PANEL (04/19/2016 12:18 PM PEDIATRIC CRITICAL CARE NURSE) Glucose 109(H) 74 - 106 mg/dL [facility] [...] BLOOD SPECIMEN / Unknown 04/19/2016 12:18 PM PEDIATRIC CRITICAL CARE NURSE 04/19/2016 Narrative Resulting Agency Comment [facility] [address] [facility] [id number] us Gurpreet Jamison MD LAB - CHEMISTRY ORDERABLES Final Result [facility] ACCOUNT BILL [address] [place] [address] from Last 3 Months or Most Recently Relevant to Health Maintenance Insurance [employer] SELF PAY NO INSURANCE Member Subscriber Plan / Payer (Ef fective for All Dates) Name:Giles Rojas Member ID:Not on file Relation to Subscriber:Not on file Name:GILES ROJAS Subscriber ID:Not on file (Home) Address: [address] [place] [address] [place] [address] Payer ID:Not on file Group ID:Not on file Type:Self Pay Address: [place], [place] [employer] Care Teams Instructional Leader Relationship Specialty Start Date End Date Giuseppe Becerra DO [address] [place] [address] PCP - General Internal Medicine 04/14/15
== END 2025-02-04 08:22 | disposition home or self-care (01) ==
PROVIDERS: PCP Internal Medicine; Visit Provider Internal Medicine
DX: M79.672 Pain in left foot (principal)
CPT/HCPCS: 73630